=== PATIENT | female | born 1950 | race Two or more races ===

== ENCOUNTER 2021-05-30 13:06 | Emergency (ER) | payer MEDICAID ==
[~2021-05-30] VITALS: Ht 160 cm; Wt 91.0 kg
[2021-05-30] MEDS ORDERED: CLOP75TA15 PO (13:25)
[2021-05-30] MEDS ORDERED: ESOM20CA58 PO (13:25)
[2021-05-30] MEDS ORDERED: AMLO10TA80 PO (13:25)
[2021-05-30] MEDS ORDERED: LINA5TAB PO (13:25)
[2021-05-30] MEDS ORDERED: ATOR10TA69 PO (13:25)
[2021-05-30] MEDS ORDERED: FURO20TA4 PO (13:25)
[2021-05-30 15:27] LABS: BASOPHILS % 0.7 % (0.0-2.0); HEMATOCRIT. 34.2 % (36.0-48.0); HEMOGLOBIN. 11.4 g/dL (12.0-16.0); LYMPHOCYTES % 20.3 % (20.0-50.0); MEAN CORPUSCULAR HEMOGLOBIN 28.4 pg (28.0-32.0); MEAN CORPUSCULAR VOLUME 85.2 fL (81.0-99.0); MONOCYTES % 5.5 % (2.0-8.0); NEUTROPHILS % 70.5 % (40.0-76.0); PLATELET 342 x1000/uL (130-400); RED BLOOD CELL COUNT 4.02 mill/uL (4.2-5.4)
[2021-05-30 15:32] LABS: CHLORIDE 111 mEq/L (98-107)
[2021-05-30 18:01] LABS: CLARITY URINE CLEAR (CLEAR); COLOR URINE YELLOW (YELLOW); KETONES URINE NEGATIVE (NEGATIVE); LEUKOCYTE ESTERASE URINE 1+ (NEGATIVE); NITRITE URINE NEGATIVE (NEGATIVE); OCCULT BLOOD URINE 1+ (NEGATIVE); PROTEIN URINE 2+ (NEGATIVE); SPECIFIC GRAVITY URINE 1.007 (1.005-1.030); UROBILINOGEN URINE 0.2 E.U./dL (0.2-1.0)
[2021-05-30 18:25] VITALS: BP 149/58
== END 2021-05-30 18:50 | disposition home or self-care (01) ==
LOC: ER 13:06
DX: Z48.03 Encounter for change or removal of drains (principal); E11.9 Type 2 diabetes mellitus without complications; E78.00 Pure hypercholesterolemia, unspecified; I10 Essential (primary) hypertension; Z98.890 Other specified postprocedural states
CPT/HCPCS: 36415; 80053; 81003; 85025; 99284; Z7610